=== PATIENT | female | born 1985 | race Caucasian/White ===

== ENCOUNTER 2016-05-22 09:31 | Emergency (ER) | payer BC ==
--- NOTE | 2016-05-22 11:33 | ER Document Report ---
ED General - General Chief Complaint: Vaginal Bleeding Stated Complaint: VAGINAL BLEEDING Time seen by provider: 11:31 Mode of Arrival: Ambulatory Information source: Patient Notes: 30-year-old female 0, 6 weeks who presents to the emergency room with vaginal bleeding cramping. Patient does have recent travel and [place] over the holidays. Patient states she did pass a clot and the bleeding has slowed up. TRAVEL OUTSIDE OF THE [place] IN LAST 30 DAYS: No - HPI Onset: Just prior to arrival Onset/Duration: Sudden Quality of pain: No pain Severity: None Pain Level: Denies Associated symptoms: denies: Chest pain, Fever, Shortness of breath Exacerbated by: Denies Relieved by: Denies Similar symptoms previously: No Recently seen / treated by doctor: No - Related Data Allergies/Adverse Reactions: Penicillins Allergy (Verified 05/22/16 09:48) Past Medical History - General Information source: Patient Last Menstrual Period: 04/27/16 - Social History Smoking Status: Never Smoker Cigarette use (# per day): No Chew tobacco use (# tins/day): No Frequency of alcohol use: None Drug Abuse: None Lives with: Family Family History: Reviewed & Not Pertinent Patient has suicidal ideation: No Patient has homicidal ideation: No - Medical History Medical History: Negative Renal/ Medical History: Denies: Hx Peritoneal Dialysis Past Surgical History: Reports: Hx Oral Surgery - Immunizations Hx Diphtheria, Pertussis, Tetanus Vaccination: Yes Review of Systems - Review of Systems Constitutional: denies: Chills, Fever EENT: No symptoms reported Cardiovascular: No symptoms reported Respiratory: No symptoms reported Gastrointestinal: No symptoms reported Genitourinary: No symptoms reported Female Genitourinary: See HPI Musculoskeletal: No symptoms reported Skin: No symptoms reported Hematologic/Lymphatic: No symptoms reported Neurological/Psychological: No symptoms reported Physical Exam - Vital signs Vitals: Temp Pulse Resp BP Pulse Ox 98.2 F 77 16 129/81 H 100 05/22/16 09:43 05/22/16 09:43 05/22/16 09:43 05/22/16 09:43 05/22/16 09:43 Notes: Physical exam: GENERAL: 30-year-old female, alert and oriented 3, no acute distress HEAD: Atraumatic, normocephalic. EYES: Pupils equal round and reactive to light, extraocular movements intact, sclera anicteric, conjunctiva are normal. ENT: Moist mucous membranes. NECK: Normal range of motion, supple LUNGS: Breath sounds clear to auscultation bilaterally and equal. No wheezes rales or rhonchi. HEART: Regular rate and rhythm without murmurs, rubs or gallops. ABDOMEN: Soft, nontender, normoactive bowel sounds. No guarding, no rebound. No masses appreciated. Suprapubic area is soft and nontender. Pelvic: External genitalia normal, Blood in the vaginal canal, uterus to deep to see if the cervical os is open or closed. No pain or masses. EXTREMITIES: Normal range of motion, no pitting or edema. No clubbing or cyanosis. NEUROLOGICAL: Cranial nerves II through XII grossly intact. Normal speech, normal gait. PSYCH: Normal mood, normal affect. SKIN: Warm, Dry, normal turgor, no rashes or lesions noted. Course - Re-evaluation Re-evalutation: Discussed results of the ultrasound and lab results with her and the importance of following up with her OB doctor this week for repeat beta hCG. She is currently reading a book and is quite comfortable. I've advised her to come back if she develops any pain or any concerns she's getting worse. 05/22/16 14:59 - Vital Signs Vital signs: Temp Pulse Resp BP Pulse Ox 98.4 F 81 16 132/88 H 100 05/22/16 14:16 05/22/16 14:16 05/22/16 14:16 05/22/16 14:16 05/22/16 14:16 - Laboratory Result Diagrams: 05/22/16 11:10 05/22/16 11:10 Laboratory results interpreted by me: 05/22/16 05/22/16 11:10 11:10 MCHC 31.4 L Plt Count 147 L Glucose 71 L Beta HCG, Quant 868.51 H Discharge - Discharge Clinical Impression: VAGINAL BLEEDING EARLY Condition: Stable Disposition: HOME, SELF-CARE Additional Instructions: As we discussed, the ultrasound does not show any evidence of an intrauterine at this time. Most likely, U have had a miscarriage. However, it is very important that you have repeat beta Quant levels (this is the baby level). It's important that we follow this number all the way down to 0. Currently, the number was 868. I would follow-up with the OB in [place] on Monday for repeat beta Quant. Bring a copy of today's lab work and ultrasound report with you. Return to the emergency room for any worsening pain or worsening bleeding or feeling faint. Return to the emergency room if you feel like he getting worse. Drink plenty of fluid, take Tylenol for cramping. Forms: Return to Work
[2016-05-22 12:17] LABS: ABSOLUTE BASOPHILS # (AUTO) 0.1 10^3/uL (0.0-0.2); ABSOLUTE EOSINOPHILS # (AUTO) 0.1 10^3/uL (0.0-0.6); ABSOLUTE LYMPHOCYTES (AUTO) 1.7 10^3/uL (0.5-4.7); ABSOLUTE MONOCYTES (AUTO) 0.6 10^3/uL (0.1-1.4); BASOPHILS % (AUTO) 0.8 % (0-2); EOSINOPHILS % (AUTO) 1.1 % (0-6); HEMATOCRIT 41.8 % (36.0-47.0); HEMOGLOBIN 13.2 g/dL (12.0-15.5); HGB HCT DIFFERENCE -2.2; LYMPHOCYTES % (AUTO) 23.2 % (13-45); MEAN CORPUSCULAR HEMOGLOBIN 29.3 pg (27.0-33.4); MEAN CORPUSCULAR HGB CONC 31.4 g/dL (32.0-36.0); MEAN CORPUSCULAR VOLUME 93 fl (80-97); MONOCYTES % (AUTO) 7.6 % (3-13); RED BLOOD COUNT 4.48 10^6/uL (3.72-5.28); RED CELL DISTRIBUTION WIDTH 13.8 % (11.5-14.0); SEGMENTED NEUTROPHILS % (AUTO) 67.3 % (42-78); WHITE BLOOD COUNT 7.5 10^3/uL (4.0-10.5)
[2016-05-22 12:30] LABS: ALANINE AMINOTRANSFERASE 16 U/L (9-52); ALBUMIN 4.1 g/dL (3.5-5.0); ALKALINE PHOSPHATASE 53 U/L (38-126); ANION GAP 12 (5-19); ASPARTATE AMINO TRANSFERASE 23 U/L (14-36); BILIRUBIN,TOTAL 0.6 mg/dL (0.2-1.3); BLOOD UREA NITROGEN 12 mg/dL (7-20); CALCIUM 9.6 mg/dL (8.4-10.2); CARBON DIOXIDE 25 mmol/L (22-30); CHLORIDE 103 mmol/L (98-107); GLUCOSE 71 mg/dL (75-110); SODIUM 139.6 mmol/L (137-145); TOTAL PROTEIN 6.9 g/dL (6.3-8.2)
[2016-05-22 13:05] LABS: CHLAM PCR NOT DETECTED (NOT DETECT)
[2016-05-22 14:18] VITALS: BP 132/88
== END 2016-05-22 14:17 | disposition home or self-care (01) ==
LOC: ER 09:31
DX: O20.9 Hemorrhage in early pregnancy, unspecified (principal); Z3A.01 Less than 8 weeks gestation of pregnancy; Z88.0 Allergy status to penicillin; O26.891 Other specified pregnancy related conditions, first trimester
CPT/HCPCS: 36415; 76817; 80053; 84702; 85025; 86900; 86901; 87210; 87491; 87591; 93976; 99284

== ENCOUNTER 2016-06-09 10:03 | Inpatient (IN) | payer BC ==
[2016-06-09] MEDS ORDERED: HYDROCODONE/ACETAMINOPHEN 5-325 MG TABLET PO ONE (10:21)
--- NOTE | 2016-06-09 10:23 | ER Document Report ---
ED Medical Screen (RME) - General Chief Complaint: Abdominal Pain Stated Complaint: ABDOMINAL PAIN Mode of Arrival: Ambulatory Information source: Patient Notes: 30-year-old female presents to the emergency department complaining of right- sided abdominal pain since this morning. Patient reports had miscarriage approximately 3 weeks ago and has had very mild pain since however became worse this morning. I have greeted and performed a rapid initial assessment of this patient. A comprehensive ED assessment and evaluation of the patient, analysis of test results and completion of the medical decision making process will be conducted by additional ED providers. TRAVEL OUTSIDE OF THE [place] IN LAST 30 DAYS: No - Related Data Allergies/Adverse Reactions: Penicillins Allergy (Verified 06/09/16 10:19) Past Medical History - Social History Chew tobacco use (# tins/day): No Frequency of alcohol use: None Drug Abuse: None Renal/ Medical History: Denies: Hx Peritoneal Dialysis Past Surgical History: Reports: Hx Oral Surgery - Immunizations Hx Diphtheria, Pertussis, Tetanus Vaccination: Yes Physical Exam - Vital signs Vitals: Temp Pulse Resp BP Pulse Ox 97.9 F 89 18 115/73 100 06/09/16 10:13 06/09/16 10:13 06/09/16 10:13 06/09/16 10:13 06/09/16 10:13 - General General appearance: Appears well, Alert In distress: None - Cardiovascular Pulses: Normal: Radial - Abdominal Tenderness: Tender - RLQ Course - Vital Signs Vital signs: Temp Pulse Resp BP Pulse Ox 97.9 F 89 18 115/73 100 06/09/16 10:13 06/09/16 10:13 06/09/16 10:13 06/09/16 10:13 06/09/16 10:13
--- NOTE | 2016-06-09 10:27 | ER Document Report ---
[id number] PAIN Mode of Arrival: Ambulatory Information source: Patient TRAVEL OUTSIDE OF THE [place] IN LAST 30 DAYS: Yes COUNTRY TRAVELED TO/FROM: [facility] Patient complains to provider of: Abdominal pain Onset: This morning - UPON AWAKENING Timing/Duration: Gradual - UNSURE, NOTED PAIN UPON ARISING THIS AM., Waxing and waning Quality of pain: Dull Severity at maximum: Mild Severity in ED: Mild Context: Other - MISCARRIAGE05/14/2016 (6 WKS). denies: Bad food, Lifting, Out of the country travel, , Recent trauma Location: RLQ Vaginal bleeding (Compared to normal period): None Menstrual period history: Abnormal - NONE SINCE MISCARRIAGE Sexual history: Active Associated symptoms: Nausea. denies: Dysuria, Urinary frequency, Urinary urgency, Vaginal discharge Exacerbated by: Movement, Other - BUMPS IN ROAD Relieved by: Remaining still - Related Data Allergies/Adverse Reactions: Penicillins Allergy (Verified 06/09/16 10:19) Home Medications: Current Home Medications Vit/Iron Fumarate/FA [ Tablet] 1 tab PO DAILY 06/09/16 [History ] Past Medical History - General Information source: Patient - Social History Smoking Status: Never Smoker Chew tobacco use (# tins/day): No Frequency of alcohol use: None Drug Abuse: None Lives with: Spouse/Significant other Family History: Reviewed & Not Pertinent Patient has suicidal ideation: No Patient has homicidal ideation: No - Past Medical History Cardiac Medical History: Reports: None Pulmonary Medical History: Reports: None EENT Medical History: Reports: None Neurological Medical History: Reports: None Endocrine Medical History: Reports: None Renal/ Medical History: Denies: Hx Kidney Stones, Hx Ovarian Cysts, Hx Peritoneal Dialysis, Hx Pelvic Inflammatory Disease Malignancy Medical History: Reports: None GI Medical History: Reports: None Musculoskeltal Medical History: Reports None Psychiatric Medical History: Reports: None Past Surgical History: Reports: Hx Oral Surgery - Immunizations Hx Diphtheria, Pertussis, Tetanus Vaccination: Yes Review of Systems - Review of Systems Constitutional: No symptoms reported EENT: No symptoms reported Cardiovascular: No symptoms reported Respiratory: No symptoms reported Gastrointestinal: See HPI Genitourinary: No symptoms reported Female Genitourinary: See HPI Musculoskeletal: No symptoms reported Skin: No symptoms reported Neurological/Psychological: No symptoms reported Physical Exam - Vital signs Vitals: Temp Pulse Resp BP Pulse Ox 97.9 F 89 18 115/73 100 06/09/16 10:13 06/09/16 10:13 06/09/16 10:13 06/09/16 10:13 06/09/16 10:13 Interpretation: Normal. No: Tachycardic, Tachypneic, Febrile - General General appearance: Appears well, Alert In distress: None - HEENT Head: Normocephalic Eyes: Normal Conjunctiva: Normal Ears: Normal Nasal: Normal Mouth/Lips: Normal Mucous membranes: Normal Pharynx: Normal Neck: Normal - Respiratory Respiratory status: No respiratory distress Breath sounds: Normal - Cardiovascular Rhythm: Regular Heart sounds: Normal auscultation Murmur: No - Abdominal Inspection: Normal Distension: No distension Bowel sounds: Hypoactive Tenderness: Tender - RLQ, McBurney's point, Guarding - Extremities General upper extremity: Normal inspection General lower extremity: Normal inspection - Neurological Neuro grossly intact: Yes Cognition: Normal Orientation: AAOx4 - Psychological Associated symptoms: Normal affect, Normal mood - Skin Skin Temperature: Warm Skin Moisture: Dry Skin Color: Normal Skin Turgor: Elastic Course - Re-evaluation Re-evalutation: 06/09/16 12:35 While sitting in bed taking off her jacket, the patient suddenly became sweaty, nauseated, and complained of weakness and dim vision. Nurse noted pallor and bradycardia. Symptoms slowly resolved after assuming the supine position. Patient states pain is no better or worse than before. Results of laboratory testing discussed. Will give fluid bolus and a pelvic ultrasound is ordered. - Vital Signs Vital signs: Temp Pulse Resp BP Pulse Ox 97.7 F 61 16 97/44 L 97 06/09/16 18:41 06/09/16 18:41 06/09/16 18:41 06/09/16 18:41 06/09/16 18:45 - Laboratory Result Diagrams: 06/09/16 19:15 06/09/16 10:30 Laboratory results interpreted by me: 06/09/16 06/09/16 06/09/16 10:30 10:30 13:33 Hgb 11.9 L Hct 35.8 L Beta HCG, Quant 1841.00 H Urine Protein 100 H Urine Ketones 20 H Crossmatch 06/09/16 14:20 Hgb Hct Beta HCG, Quant Urine Protein Urine Ketones Crossmatch See Detail - Consults DR. GALAN Time consulted: 14:00 Consulted provider: will come to ER Critical Care Note - Critical Care Note Total time excluding time spent on procedures (mins): 30 Comments: LIFE-THREATENING INTERNAL HEMORRHAGE, UNSTABLE VITAL SIGNS REQUIRING AGGRESSIVE FLUID RESUSCITATION. Discharge - Discharge Clinical Impression: Ruptured ectopic Condition: Fair Disposition: ADMITTED INPATIENT Admitting Provider: [facility] Admitted: Surgical Floor
[2016-06-09 10:56] LABS: ABSOLUTE BASOPHILS # (AUTO) 0.1 10^3/uL (0.0-0.2); ABSOLUTE EOSINOPHILS # (AUTO) 0.1 10^3/uL (0.0-0.6); ABSOLUTE LYMPHOCYTES (AUTO) 1.8 10^3/uL (0.5-4.7); ABSOLUTE MONOCYTES (AUTO) 0.5 10^3/uL (0.1-1.4); ABSOLUTE NEUT (AUTO) 5.4 10^3/uL (1.7-8.2); BASOPHILS % (AUTO) 0.8 % (0-2); EOSINOPHILS % (AUTO) 1.4 % (0-6); HEMATOCRIT 35.8 % (36.0-47.0); HEMOGLOBIN 11.9 g/dL (12.0-15.5); HGB HCT DIFFERENCE -0.1; LYMPHOCYTES % (AUTO) 22.8 % (13-45); MEAN CORPUSCULAR HEMOGLOBIN 30.3 pg (27.0-33.4); MEAN CORPUSCULAR HGB CONC 33.3 g/dL (32.0-36.0); MEAN CORPUSCULAR VOLUME 91 fl (80-97); MONOCYTES % (AUTO) 6.6 % (3-13); RED BLOOD COUNT 3.94 10^6/uL (3.72-5.28); RED CELL DISTRIBUTION WIDTH 13.6 % (11.5-14.0); SEGMENTED NEUTROPHILS % (AUTO) 68.4 % (42-78); WHITE BLOOD COUNT 7.9 10^3/uL (4.0-10.5)
[2016-06-09 11:23] LABS: ALANINE AMINOTRANSFERASE 17 U/L (9-52); ALBUMIN 4.5 g/dL (3.5-5.0); ALKALINE PHOSPHATASE 62 U/L (38-126); ANION GAP 11 (5-19); ASPARTATE AMINO TRANSFERASE 21 U/L (14-36); BILIRUBIN,TOTAL 0.7 mg/dL (0.2-1.3); BLOOD UREA NITROGEN 13 mg/dL (7-20); CALCIUM 9.8 mg/dL (8.4-10.2); CARBON DIOXIDE 26 mmol/L (22-30); CHLORIDE 105 mmol/L (98-107); GLUCOSE 85 mg/dL (75-110); LIPASE 61.8 U/L (23-300); POTASSIUM 4.6 mmol/L (3.6-5.0); SODIUM 141.7 mmol/L (137-145); TOTAL PROTEIN 7.2 g/dL (6.3-8.2)
[2016-06-09] MEDS ORDERED: NORMAL SALINE 1000 ML 500 ML IV ONE ×2 (12:21→12:30)
[2016-06-09] MEDS ORDERED: NORMAL SALINE 1000 ML 1,000 ML IV ONE (13:43)
[2016-06-09 14:09] LABS: AMORPHOUS SEDIMENT,URINE TRACE /HPF; APPEARANCE,URINE CLOUDY; BILIRUBIN,URINE NEGATIVE (NEGATIVE); GLUCOSE, URINE NEGATIVE (NEGATIVE); KETONES,URINE 20 mg/dL (NEGATIVE); LEUKOCYTE ESTERASE,URINE NEGATIVE (NEGATIVE); NITRITE,URINE NEGATIVE (NEGATIVE); PROTEIN,URINE 100 mg/dL (NEGATIVE); UROBILINOGEN,URINE NEGATIVE mg/dL (<2.0)
[2016-06-09] MEDS ORDERED: PROPOFOL INJ 200 MG/20 ML VIAL IV ONE (14:48)
[2016-06-09] MEDS ORDERED: HYDROMORPHONE HCL INJ/PF 2 MG/ML AMPULE ONE (14:48)
[2016-06-09] MEDS ORDERED: FENTANYL CITRATE INJ/PF 250 MCG/5 ML AMPULE ONE (14:48)
[2016-06-09] MEDS ORDERED: MIDAZOLAM 2 MG/2 ML INJ ONE (14:48)
[2016-06-09] MEDS: CLINDAMYCIN 600 MG/D5W RTU 600 MG/50 ML RTUPB IV ONE ×2 (15:10→19:23)
[2016-06-09] MEDS ORDERED: GLYCOPYRROLATE INJ 0.4 MG/2 ML VIAL ONE (16:15)
[2016-06-09] MEDS ORDERED: ONDANSETRON HCL INJ/PF 4 MG/2 ML SDV ONE (16:15)
[2016-06-09] MEDS ORDERED: DEXAMETHASONE SOD PHOSPHATE INJ 4 MG/1 ML VIAL ONE (16:15)
[2016-06-09] MEDS ORDERED: NEOSTIGMINE METHYLSULFATE 10 MG/10 ML VIAL ONE (16:15)
[2016-06-09] MEDS ORDERED: ROCURONIUM BROMIDE INJ 50 MG/5 ML VIAL IV ONE (16:15)
[2016-06-09] MEDS ORDERED: SUCCINYLCHOLINE CHLORIDE INJ 200 MG/10 ML VIAL ONE (16:15)
[2016-06-09] MEDS ORDERED: MORPHINE SULFATE 10 MG/ML INJ IV PRN (16:18)
[2016-06-09] MEDS ORDERED: DIPHENHYDRAMINE HCL 50 MG/ML VIAL IV PRN (16:18)
[2016-06-09] MEDS ORDERED: PROMETHAZINE HCL INJ 25 MG/1 ML VIAL IV PRN ×3 (16:18→21:52)
[2016-06-09] MEDS ORDERED: MEPERIDINE HCL/PF INJ 25 MG/1 ML DISP.SYRIN IV PRN (16:18)
[2016-06-09] MEDS ORDERED: FENTANYL CITRATE INJ/PF 100 MCG/2 ML AMPUL IV PRN ×3 (16:18)
[2016-06-09] MEDS ORDERED: OXYCODONE-ACETAMINOPHEN 5-325 MG TABLET PO PRN ×2 (16:18)
[2016-06-09] MEDS ORDERED: PROMETHAZINE HCL INJ 25 MG/1 ML VIAL ONE (16:55)
[2016-06-09] MEDS: MEPERIDINE HCL/PF INJ 25 MG/1 ML DISP.SYRIN ONE ×2 (16:55→17:00)
[2016-06-09] MEDS ORDERED: ACETAMINOPHEN 325 MG TABLET PO PRN (17:38)
[2016-06-09] MEDS ORDERED: HYDROMORPHONE HCL INJ/PF 2 MG/ML AMPULE IV PRN (17:38)
[2016-06-09] MEDS ORDERED: PROMETHAZINE HCL INJ 25 MG/1 ML VIAL IM PRN (17:38)
[2016-06-09] MEDS ORDERED: MEASLES,MUMPS&RUBELLA VACC/PF 0.5 ML VIAL SUBCUT PRN (17:38)
[2016-06-09] MEDS ORDERED: RINGERS SOLUTION,LACTATED 1,000 ML IV PRN (17:39)
[2016-06-09] MEDS ORDERED: ONDANSETRON HCL INJ/PF 4 MG/2 ML SDV IV PRN (17:42)
[2016-06-09] MEDS ORDERED: ONDANSETRON 4 MG TAB.RAPDIS PO PRN (17:42)
[2016-06-09] MEDS: DOCUSATE SODIUM 100 MG CAPSULE PO SCH (18:05)
[2016-06-09] MEDS: IBUPROFEN 800 MG TABLET PO SCH (18:06)
[2016-06-09 19:36] LABS: ABSOLUTE LYMPHOCYTES (AUTO) 0.7 10^3/uL (0.5-4.7); ABSOLUTE MONOCYTES (AUTO) 0.2 10^3/uL (0.1-1.4); ABSOLUTE NEUT (AUTO) 11.4 10^3/uL (1.7-8.2); BASOPHILS % (AUTO) 0.2 % (0-2); HEMATOCRIT 27.3 % (36.0-47.0); HGB HCT DIFFERENCE -0.3; LYMPHOCYTES % (AUTO) 5.6 % (13-45); MEAN CORPUSCULAR HEMOGLOBIN 29.9 pg (27.0-33.4); MEAN CORPUSCULAR HGB CONC 32.9 g/dL (32.0-36.0); MEAN CORPUSCULAR VOLUME 91 fl (80-97); MONOCYTES % (AUTO) 1.4 % (3-13); RED CELL DISTRIBUTION WIDTH 13.5 % (11.5-14.0); SEGMENTED NEUTROPHILS % (AUTO) 92.8 % (42-78); WHITE BLOOD COUNT 12.3 10^3/uL (4.0-10.5)
[2016-06-09] MEDS ORDERED: ACETAMINOPHEN 325 MG TABLET PO ONE (21:45)
[2016-06-09] MEDS ORDERED: DIPHENHYDRAMINE HCL 50 MG CAPSULE PO ONE (21:45)
[2016-06-10] MEDS: OXYCODONE-ACETAMINOPHEN 5-325 MG TABLET PO PRN ×5 (00:19→20:16)
[2016-06-10] MEDS: IBUPROFEN 800 MG TABLET PO SCH ×4 (04:44→17:53)
[2016-06-10 07:13] LABS: HEMATOCRIT 29.7 % (36.0-47.0); HGB HCT DIFFERENCE 0.3; MEAN CORPUSCULAR HEMOGLOBIN 30.3 pg (27.0-33.4); MEAN CORPUSCULAR HGB CONC 33.7 g/dL (32.0-36.0); MEAN CORPUSCULAR VOLUME 90 fl (80-97); RED BLOOD COUNT 3.31 10^6/uL (3.72-5.28); WHITE BLOOD COUNT 12.3 10^3/uL (4.0-10.5)
--- NOTE | 2016-06-10 07:27 | PDOC PROGRESS REPORT ---
Subjective Subjective:: Pt reports feeling much better Pain very well controlled, no n/v No new complaints Physical Exam - Physical Exam Vital Signs: Temp Pulse Resp BP Pulse Ox 98.7 F 89 16 99/54 L 100 06/10/16 03:33 06/10/16 03:33 06/10/16 03:33 06/10/16 03:33 06/10/16 03:33 Intake & Output 06/09/16 06/10/16 06/11/16 06:59 06:59 06:59 Intake Total 4550 Output Total 4650 Balance -100 General appearance: PRESENT: no acute distress, cooperative, well-nourished GI/Abdominal exam: PRESENT: normal bowel sounds, soft - Bandage is clean, dry and intact Result Laboratory Results: 06/10/16 06:30 06/09/16 06/10/16 19:15 06:30 WBC 12.3 H 12.3 H RBC 3.00 L 3.31 L Hgb 9.0 L D 10.0 L Hct 27.3 L 29.7 L MCV 91 90 MCH 29.9 30.3 MCHC 32.9 33.7 RDW 13.5 14.0 Plt Count 107 L 116 L Seg Neutrophils % 92.8 H Lymphocytes % 5.6 L Monocytes % 1.4 L Eosinophils % 0.0 Basophils % 0.2 Absolute Neutrophils 11.4 H Absolute Lymphocytes 0.7 Absolute Monocytes 0.2 Absolute Eosinophils 0.0 Absolute Basophils 0.0 Impressions: Transvaginal US 06/09/16 12:20 IMPRESSION: Ruptured right ectopic . Assessment & Plan - Diagnosis (1) Ruptured ectopic Is this a current diagnosis for this admission?: YesPlan: will conitune routine postop care Pland/c home tomorrow
[2016-06-10] MEDS: DOCUSATE SODIUM 100 MG CAPSULE PO SCH ×2 (09:55→17:54)
[2016-06-10] MEDS: SIMETHICONE 80 MG TAB.CHEW PO PRN (20:22)
[2016-06-11] MEDS: SIMETHICONE 80 MG TAB.CHEW PO PRN (05:30)
[2016-06-11] MEDS: OXYCODONE-ACETAMINOPHEN 5-325 MG TABLET PO PRN (05:30)
[2016-06-11] MEDS: IBUPROFEN 800 MG TABLET PO SCH ×2 (05:32→08:06)
--- NOTE | 2016-06-11 08:16 | PDOC PROGRESS REPORT ---
Subjective Subjective:: Pt reports feeling "1000%" better No new complaints Physical Exam - Physical Exam Vital Signs: Temp Pulse Resp BP Pulse Ox 98.4 F 95 15 106/54 L 98 06/11/16 04:00 06/11/16 04:00 06/11/16 04:00 06/11/16 04:00 06/11/16 04:00 Intake & Output 06/10/16 06/11/16 06/12/16 06:59 06:59 06:59 Intake Total 4550 560 Output Total 4650 Balance -100 560 General appearance: PRESENT: no acute distress, cooperative, well-nourished GI/Abdominal exam: PRESENT: normal bowel sounds, soft, other - Bandage is clean , dry, intact Dermabond sites are intact and dry Result Laboratory Results: 06/10/16 06:30 Impressions: Transvaginal US 06/09/16 12:20 IMPRESSION: Ruptured right ectopic . Assessment & Plan - Diagnosis (1) Ruptured ectopic Is this a current diagnosis for this admission?: Yes - Plan Summary Plan Summary: Will d/c home Will give Percocet F/U monday with Dr Stephens at [facility]
[2016-06-11 08:25] VITALS: BP 117/78
--- NOTE | 2016-07-05 14:53 | DISCHARGE SUMMARY E ---
Discharge Summary NAME: MAIK VALENZUELA : 1985 AGE: 30Y ADMITTED: 06/09/2016 DISCHARGED: 06/11/2016 REASON FOR ADMISSION: Right ruptured corneal ectopic . HISTORY AND PHYSICAL: See dictated history and physical from 06/09/2016 for full details. HOSPITAL COURSE: The patient is admitted to the hospital where she undergoes her operative procedure. It is an uncomplicated procedure. See operative note for full details. She is transferred to [address] [place] [address] for her postoperative care. She is started on routine postoperative orders. By postoperative day number one, patient's vital signs remain stable. Her incision is clean, dry, intact, and her postoperative hemoglobin is stable following 2 units of packed red blood cells. By postoperative day number 2, patient is tolerating a regular diet. She is ambulating in the halls without difficulty and her incision is clean, dry, and intact. She is meeting all goals and therefore will be discharged home. DISCHARGE INSTRUCTIONS: Discharge patient to home. Diet is regular. Low activity as tolerated. Followup interval is [address] Stephens. SPECIAL INSTRUCTIONS: The patient is instructed to call MD if temperature greater than 100.5, heavy vaginal bleeding, or signs and symptoms of wound infection occur. MEDICATIONS ON DISCHARGE: Percocet. DICTATING PHYSICIAN: Marko Stephens DO [id number] PHY#: [id number] ID: [id number] JOB#: [id number] ACCT: [id number] cc:Marko Stephens D.O. >
--- NOTE | 2016-07-05 15:15 | OPERATIVE REPORT E ---
Operative Report NAME: MAIK VALENZUELA : 1985 AGE: 30Y DATE OF SURGERY: 06/09/2016 ROOM: 207 PREOPERATIVE DIAGNOSIS: Right ruptured cornual ectopic. POSTOPERATIVE DIAGNOSIS: Right ruptured cornual ectopic. SURGEON: Marko Stephens D.O. COREMAKING MACHINE SETTER: None. ANESTHESIA: General endotracheal anesthesia. COMPLICATIONS: None. PATHOLOGY: Right fallopian tube with partial wedge resection of uterus. ESTIMATED BLOOD LOSS: 25 mL. FINDINGS: 1. Right ruptured cornual ectopic that is well contained within the broad ligament. 2. Approximately 750 mL of hemoperitoneum. 3. Normal appearing left fallopian tube and bilateral ovaries. PROCEDURE: The patient was taken to the operating room where she was placed in the dorsal supine position upon the operating table. She was then administered her general endotracheal anesthesia. Once this was done, she was placed in Adriel stirrups. She was then prepped and draped in a normal sterile fashion. A 5 mm incision was made at the base of the patient's umbilicus where a 5 mm direct Optiview scope was passed through the incision into the peritoneal cavity. Once inside the peritoneal cavity, the CO2 gas was turned on and opening pressure was noted to be less than 5. Upon entry with the 5 mm scope, it was noted the patient to have a hemoperitoneum. A 10 mm port side was placed in the left lower quadrant and a 5 mm port was placed in the right lower quadrant under visualization without evidence of trauma or injury. Approximately 750 mL of hemoperitoneum were removed before clearly seeing the pelvic anatomy which revealed a right ruptured cornual ectopic that was contained within the right broad ligament. The bilateral ovaries looked within normal limits and the left fallopian tube looked within normal limits. At this point in time, it was determined that this case needed to be performed via laparotomy, so all port sites, instruments, and gas was removed from the patient's abdomen. The 10 mm fascial defect was closed using an 0 Vicryl in a [id number] suture and the skin incision was closed using Dermabond. A scalpel was then used to make a Pfannenstiel skin incision. The skin incision was carried down through subcutaneous tissue to the layer of the fascia. The fascia was incised in the midline. The fascial incision was then extended bilaterally using the Bovie cautery. The superior fascial edge was grasped with Yvette clamps, elevated, and the rectus muscles were dissected off sharply and bluntly. Attention was then turned to the inferior fascial edge which was grasped with Yvette clamps, elevated, and the rectus muscles dissected off sharply and bluntly. Rectus muscles were in the midline, peritoneum identified and entered bluntly with the surgeon's hands. The patient was then placed in a little bit of Trendelenburg and the bowels packed away with wet lap sponges. Using the harmonic device, a wedge resection of the right side of the uterus which entailed removing the right cornual ectopic was performed. Once the wedge resection was performed and the ectopic was removed, several 0 Vicryl sutures were required to close the uterus and gain hemostasis. Following this, the pelvis was then copiously irrigated and the incision in the right sided uterus was observed and found to have excellent hemostasis. At this point in time, all instruments were removed and packing was removed from the patient's abdomen. The rectus muscles were the reapproximated using 1-0 Vicryl uninterrupted sutures. The fascia was then closed using 1-0 Vicryl in a running nonlocking fashion. The subcutaneous space was hemostatic using Bovie cautery. The skin was then closed with absorbable stables, covered with an OpSite and then with a pressure dressing. At this point in time, the procedure was terminated. All sponge, lab, and needle counts were correct x2. Patient tolerated the procedure well. Patient was taken to the recovery room in stable condition. DICTATING PHYSICIAN: Marko Stephens DO [id number] PHY#: [id number] ID: [id number] JOB#: [id number] ACCT: [id number] cc:Marko Stephens D.O. >
== END 2016-06-11 09:06 | disposition home or self-care (01) | DRG 777 ==
LOC: ER 10:03 → EH 14:34 → 2N 17:38
PROVIDERS: ADMIT Obstetrics & Gynecology; ATTEND Obstetrics & Gynecology
PROC: 0UB50ZZ Excision of Right Fallopian Tube, Open Approach (ICD-10-PCS; 2016-06-09)
PROC: 30233N1 Transfusion of Nonautologous Red Blood Cells into Peripheral Vein, Percutaneous Approach (ICD-10-PCS; 2016-06-09)
PROC: 10T20ZZ Resection of Products of Conception, Ectopic, Open Approach (ICD-10-PCS; principal; 2016-06-09 15:30)
DX: O00.10 Tubal pregnancy without intrauterine pregnancy (principal); Z3A.01 Less than 8 weeks gestation of pregnancy; Z88.0 Allergy status to penicillin
CPT/HCPCS: 36415; 36430; 76817; 80053; 81001; 83690; 840; 84702; 85025; 85027; 86850; 86900; 86901; 86920; 88305; 93976; 94799; 96360; 99291; J0330; J1100; J1170; J2175; J2250; J2405; J2550; J2704; J3010; J3490; J7030; P9016